=== PATIENT | male | born 1985 | race Hispanic/Latino ===

== ENCOUNTER 2019-02-03 03:46 | Emergency (ER) | payer SELFPAY ==
[2019-02-03] MEDS ORDERED: AMOXICILLIN/POTASSIUM CLAV 875-125 TABLET PO ONE (04:22)
[2019-02-03] MEDS ORDERED: MORPHINE SULFATE 2 MG/ML 1ML SYG ONE (04:22)
[2019-02-03] MEDS ORDERED: TETANUS/DIPHTHERIA TOXOID [ADULT] 0.5 ML VIAL IM ONE (04:23)
== END 2019-02-03 06:43 | disposition home or self-care (01) ==
LOC: EDH 03:46
DX: T63.591A Toxic effect of contact with other venomous fish, accidental (unintentional), initial encounter (principal); Z72.0 Tobacco use; Y92.89 Other specified places as the place of occurrence of the external cause
CPT/HCPCS: 90471; 90714; 96372